=== PATIENT | female | born 1945 | race Caucasian/White ===

== ENCOUNTER 2017-08-13 04:59 | Inpatient (IN) ==
[2017-08-08 13:34] LABS: Appearance,Urine CLEAR; Bilirubin,Urine NEG (NEG); Color,Urine YELLOW; Glucose,Urine (UA) NEGATIVE (NEG); Leukocyte Esterase,Urine 75 /uL (NEG); Protein,Urine NEG (NEG); Urine Blood NEG mg/dL (<0.03); Urobilinogen,Urine NEG (NEG)
[2017-08-08 14:27] LABS: Basophils # (Auto) 0 K/mcL (0.0-0.3); Basophils % (Auto) 0.5 % (0.0-2.0); Eosinophils # (Auto) 0.1 K/mcL (0.0-0.7); Granulocytes % (Auto) 73.8 % (38.0-78.0); Lymphocytes # (Auto) 0.9 K/mcL (1.5-4.8); Lymphocytes % (Auto) 15.5 % (15.5-49.0); Mean Corpuscular HGB Conc 32.9 g/dL (31.0-36.0); Monocytes # (Auto) 0.5 K/mcL (0.1-0.9); Monocytes % (Auto) 8.2 % (1.0-12.0); Platelet Count 173 K/mcL (140-440); RBC 5.37 M/mcL (4.00-5.20); Red Cell Distribution Width 17.6 % (11.5-14.5)
[2017-08-08 14:31] LABS: Bacteria,Urine 0 /hpf (0); Mucus,Urine FEW /hpf (0); Urine RBC 1 /hpf (0-1); Urine Squamous Epithelial Cell 2 /hpf (0-4); Urine Transitional Epi Cells < 1 /hpf (0-2); Urine WBC 3 /hpf (0-4)
[2017-08-08 14:40] LABS: Blood Urea Nitrogen 20 mg/dl (8-23)
[2017-08-13] MEDS ORDERED: ACETAMINOPHEN 500 MG TABLET PO SCH (05:00)
[2017-08-13] MEDS ORDERED: CELECOXIB 200 MG CAPSULE PO SCH (05:00)
[2017-08-13] MEDS ORDERED: ceFAZolin 1 GM VIAL IV SCH (05:00)
[2017-08-13] MEDS ORDERED: oxyCODONE 10 MG TAB.ER.12H PO SCH (05:00)
[2017-08-13] MEDS ORDERED: PREGABALIN 75 MG CAPSULE PO SCH (05:00)
[2017-08-13] MEDS ORDERED: KETOROLAC 30 MG, ROPIVACAINE HCL/PF 49.5 ML, EPINEPHrine 0.5 MG, 0.9 % SODIUM CHLORIDE ... IJ SCH (06:30)
[2017-08-13] MEDS ORDERED: LIDOCAINE HCL/PF 100 MG/5 ML SYRINGE IV ONE (07:45)
[2017-08-13] MEDS ORDERED: PROPOFOL 200 MG/20 ML VIAL IV ONE (07:45)
[2017-08-13] MEDS ORDERED: ONDANSETRON 4 MG/2 ML VIAL IV ONE (07:45)
[2017-08-13] MEDS ORDERED: MIDAZOLAM 2 MG/2 ML VIAL IV ONE (07:45)
[2017-08-13] MEDS ORDERED: DEXAMETHASONE 10 MG/ML VIAL IV ONE (07:45)
[2017-08-13] MEDS ORDERED: KETAMINE 100 MG/ML ML IV ONE (07:45)
[2017-08-13] MEDS ORDERED: TRANEXAMIC ACID 1,000 MG/10 ML VIAL IV ONE (07:45)
[2017-08-13] MEDS ORDERED: PHENYLEPHRINE 10 MG/ML VIAL IV ONE (07:45)
[2017-08-13] MEDS ORDERED: ePHEDrine 50 MG/ML AMPUL IV ONE (07:45)
[2017-08-13] MEDS ORDERED: BUPIVACAINE W/EPI 0.5% 50 ML VIAL IJ ONE (07:45)
[2017-08-13] MEDS ORDERED: GLYCOPYRROLATE 0.2 MG/ML VIAL IV ONE (07:45)
[2017-08-13] MEDS ORDERED: GENTAMICIN SULFATE 800 MG/20 ML VIAL IR ONE (08:10)
[2017-08-13] MEDS ORDERED: fentaNYL 100 MCG/2 ML VIAL IV PRN (08:14)
[2017-08-13] MEDS ORDERED: PROMETHAZINE 25 MG/ML VIAL IV PRN (08:14)
[2017-08-13] MEDS ORDERED: LACTATED RINGERS 250 ML IV PRN (08:14)
[2017-08-13] MEDS ORDERED: NALOXONE HCL 0.4 MG/ML VIAL IV PRN (08:14)
[2017-08-13] MEDS ORDERED: IPRATROPIUM/ALBUTEROL 3 ML AMPUL.NEB NEB PRN (08:14)
[2017-08-13] MEDS ORDERED: ACETAMINOPHEN 1,000 MG/100 ML BOTTLE IV ONE (08:14)
[2017-08-13] MEDS ORDERED: BENZOCAINE/MENTHOL 1 LOZENGE PO PRN ×2 (08:14→09:06)
[2017-08-13] MEDS ORDERED: ONDANSETRON 4 MG/2 ML VIAL IV PRN (08:14)
[2017-08-13] MEDS ORDERED: MEPERIDINE 25 MG/ML SYRINGE IV PRN (08:14)
[2017-08-13] MEDS ORDERED: METHOCARBAMOL 1,000 MG/10 ML VIAL IV PRN (08:14)
[2017-08-13] MEDS ORDERED: FLUMAZENIL 0.1 MG/ML ML IV PRN (08:14)
[2017-08-13] MEDS ORDERED: LACTATED RINGERS 1,000 ML IV SCH (08:15)
--- NOTE | 2017-08-13 09:05 | Brief Operative Note ---
Date of procedure: 08/13/17 Pre-op diagnosis: Left knee djd Procedure: left tka with robot Grafts/Implants: Yes Anesthesia: GETA Findings: none Complications: none Complications Description: 08/13/17 09:05 none Surgeon: Feroz Rayo Trimmer Loader: Aureliano Obregon Estimated blood loss (cc): 20 Tourniquet Time (Minutes): 45 Specimens Removed/Pathology: none sent Condition: stable Disposition: PACU
[2017-08-13] MEDS ORDERED: MAGNESIUM HYDROXIDE 30 ML ORAL.SUSP PO PRN (09:06)
[2017-08-13] MEDS ORDERED: BISACODYL 10 MG SUPP.RECT PR PRN (09:06)
[2017-08-13] MEDS ORDERED: ACETAMINOPHEN 325 MG TABLET PO PRN (09:06)
[2017-08-13] MEDS ORDERED: TRANEXAMIC ACID 1,000 MG/10 ML VIAL IV SCH (09:06)
[2017-08-13] MEDS ORDERED: FLEETS ADULT ENEMA PR PRN (09:06)
[2017-08-13] MEDS ORDERED: POLYETHYLENE GLYCOL 3350 17 GM PACKET PO PRN (09:06)
--- NOTE | 2017-08-13 10:32 | XRay Report ---
CLINICAL INFORMATION: Post-Op Total Knee COMPARISON: None. FINDINGS: Total knee prostheses is anatomically aligned. No osseous abnormality. Periarticular gas and soft tissue swelling seen. IMPRESSION: Negative Interpreted and Authenticated by: Musa Ba 08/13/17
[2017-08-13] MEDS: KETOROLAC 15 MG/ML VIAL IV SCH ×3 (11:45→23:51)
[2017-08-13] MEDS: 0.45 % SODIUM CHLORIDE 1,000 ML IV SCH ×2 (11:46→20:41)
--- NOTE | 2017-08-13 12:30 | Operative Note ---
DATE OF OPERATION: 08/13/2017 PREOPERATIVE DIAGNOSIS: Significant arthritis of the left knee. POSTOPERATIVE DIAGNOSIS: Significant arthritis of the left knee. PROCEDURE: Left total knee using the ZAKIYA robot. SURGEON: Feroz Rayo M.D. SENSOR TECHNICIAN: Aureliano Obregon PA-C. ANESTHESIA: General LMA anesthesia. IMPLANTS: Flomaton implants. ESTIMATED BLOOD LOSS: 20 mL. TOURNIQUET TIME: 45 minutes. SPECIMENS: None. DESCRIPTION OF PROCEDURE: The patient was brought to the operating room and put to sleep with general LMA anesthesia. The left leg was sterilely prepped and draped in the usual sterile fashion and a timeout performed. We confirmed the operative site both by x-rays, consent form, and initials on the skin. Once done, we then made a midline incision. A mid vastus approach was performed. We inspected the knee showing severe arthritis of patellofemoral joint and a lot of arthritis in the medial and lateral compartments. We then proceeded with a total knee arthroplasty, and the ZAKIYA robot was brought in. We placed two pins above and below the knee, registered center of hip rotation. We registered medial and lateral malleolus, registered the intra-articular pins. We then registered thirty points on the femur and the tibia. We balanced the knee both at 90 degrees and in extension. Once this was perfectly positioned as far as the robot and implant positioning, we then proceeded with the case. The robot was brought in. It was registered as well as the intra-articular pin. We made our tibial cut, our anterior and posterior cuts on the femur and then our chamfer cut anteriorly, and then we changed blades into an angled blade. A distal cut was then made and a posterior chamfer cut made. We irrigated. We then removed the bony fragments, removed osteophytes posteriorly, removed the remnants of the meniscus. A tibial baseplate was then set for rotation according to the robotic placement. We then punched into place. We then trialed the femur. It fit very nicely. We irrigated thoroughly and placed an 11 mm poly which gave us 0 degrees extension. The knee was very stable throughout. We irrigated thoroughly. The knee initially had 9 degrees of hyperextension. We then prepared the patella. Its total thickness measured 19 mm. We prepared this down to 13 mm and placed a 31 mm poly which brought us back to 22 mm in total thickness. We irrigated. We then cemented into place the above-mentioned sizes, removing excess cement, and placing an 11 mm poly. We irrigated thoroughly, deflated the tourniquet at 45 minutes, and then closed the mid vastus approach with #1 Stratafix x2 stitches. We then closed the skin with 2-0 Vicryl and adhesive closure. The patient tolerated this well. Sterile bandage was applied. RBH:sunny Job ID: [id number] Doc ID: [id number] Feroz Rayo MD
[2017-08-13] MEDS: 0.9 % SODIUM CHLORIDE 10 ML SYRINGE IV SCH ×2 (12:38→20:50)
[2017-08-13] MEDS: HYDROmorphone 2 MG/ML VIAL IV PRN ×2 (13:23→17:44)
[2017-08-13] MEDS: HYDROcodone/APAP 10/325MG TABLET PO PRN (13:55)
[2017-08-13] MEDS: ceFAZolin 1 GM VIAL IV SCH ×2 (15:37→22:38)
[2017-08-13] MEDS: CARBIDOPA/LEVODOPA 25/100 TABLET PO SCH ×2 (15:37→20:43)
[2017-08-13] MEDS: ONDANSETRON 4 MG/2 ML VIAL IV PRN ×2 (17:57→21:02)
[2017-08-13] MEDS: ASPIRIN 325 MG ENTERIC COATED TABLET PO SCH (20:43)
[2017-08-13] MEDS: DOCUSATE SODIUM 100 MG CAPSULE PO SCH (20:43)
[2017-08-13] MEDS ORDERED: SERTRALINE 50 MG TABLET PO SCH (21:00)
[2017-08-13] MEDS ORDERED: LISINOPRIL 10 MG TABLET PO SCH (21:00)
[2017-08-13] MEDS ORDERED: TEMAZEPAM 15 MG CAPSULE PO PRN (21:00)
[2017-08-13] MEDS ORDERED: SENNOSIDES 1 TABLET PO SCH (21:00)
[2017-08-13] MEDS ORDERED: ACETAMINOPHEN/DIPHENHYDRAMINE 1 TABLET PO SCH (21:00)
[2017-08-14] MEDS: HYDROcodone/APAP 10/325MG TABLET PO PRN ×2 (03:42→09:38)
[2017-08-14] MEDS: KETOROLAC 15 MG/ML VIAL IV SCH ×2 (05:43→13:16)
[2017-08-14] MEDS: 0.9 % SODIUM CHLORIDE 10 ML SYRINGE IV SCH ×2 (05:44→13:16)
[2017-08-14] MEDS: 0.45 % SODIUM CHLORIDE 1,000 ML IV SCH (06:06)
--- NOTE | 2017-08-14 07:34 | Orthopedic Progress Note ---
Subjective Patient information: Note initiated : 08/14/17 at 7:33 am Service Date, if different from initiated Date: [] Patient: Mary Hogan 71 y/o F admitted on 08/13/17 for Left Robotic Total Knee Arthroplasty. Chief Complaint: [Pt is stable this morning on post operative day 1 without any significant concerns or complaints. Patients vital signs have remained stable. Patients dressing is dry and is grossly instact from a neurovascular and motor standpoint. Patients 10 point ROS is otherwise negative. ] Objective Vital signs: Vital Signs Temp Pulse Resp BP Pulse Ox 08/14/17 06:27 97.4 F 69 18 122/80 94 08/14/17 03:22 95 08/14/17 03:16 97.7 F 75 18 125/81 95 08/14/17 00:00 93 08/13/17 23:56 97.4 F 71 16 124/83 93 08/13/17 20:58 91 08/13/17 19:48 97.5 F 71 17 105/70 91 08/13/17 17:00 96 08/13/17 15:47 97.6 F 18 121/80 96 08/13/17 13:35 127/86 95 08/13/17 12:38 97 08/13/17 12:35 136/83 96 08/13/17 12:05 133/84 94 08/13/17 11:35 122/79 96 08/13/17 11:20 126/79 96 08/13/17 11:05 130/67 98 08/13/17 10:51 116/70 97 08/13/17 10:23 97.1 F 85 15 147/73 97 08/13/17 10:10 74 15 119/74 97 08/13/17 09:55 75 15 110/66 98 08/13/17 09:40 74 15 101/65 98 08/13/17 09:25 97.3 F 85 15 100/59 98 Intake and Output 08/13/17 08/14/17 08/14/17 21:59 05:59 13:59 Intake Total 230 / 230 200 / 200 Output Total 50 / 50 525 / 525 Balance 180 / 180 -325 / -325 Intake: Oral 230 / 230 200 / 200 Output: Urine Catheter Amount 500 / 500 Void Amount 50 / 50 25 / 25 Other: Meal Dinner Percent of Meal Consumed 50% Feeding Ability Assist with Tray Set Up Weight 202 lb Intake & Output: Intake & Output 08/13/17 08/14/17 08/14/17 21:59 05:59 13:59 Intake Total 230 / 230 200 / 200 Output Total 50 / 50 525 / 525 Balance 180 / 180 -325 / -325 Weight 202 lb Intake: Oral 230 / 230 200 / 200 Output: Urine Catheter Amount 500 / 500 Void Amount 50 / 50 25 / 25 Other: Meal Dinner Percent of Meal Consumed 50% Feeding Ability Assist with Tray Set Up Incision: Yes healing Incision clean and dry: Yes Dressing: Yes clean, Yes dry Weight bearing status: full Neurological exam IM: Yes oriented X3, Yes reflexes normal, Yes motor sensory intact, Yes neurovascular intact Extremities exam IM: Yes Foot pink and warm, Yes neurovascular intact - Labs CBC & BMP: 08/14/17 04:25 08/08/17 11:28 Labs: Orthopedic Labs 08/08/17 11:28 PT 13.2 INR 1.0 APTT 33 08/14/17 08/08/17 04:25 11:28 Hgb 14.0 Hct 33.6 L 42.4 Assessment and Plan (1) Hx of total knee arthroplasty The patient has been educated regarding dressing care, Physical Therapy recommendations, home exercises, restrictions, and follow up appointments. The patient has had all necessary DME prescribed. The patient has remained stable during their hospital course. The patient was discharge with a stable exam. Leave Dermabond patch intact until followup Status: Acute
--- NOTE | 2017-08-14 07:37 | Discharge Summary ---
Ortho Discharge - TKA - Patient Instructions Diet: Regular Diet Activity: activity as tolerated, weight bearing as tolerated Total Knee Protocol: For Total Knee: Start ROM SHANELLE with stationary bike or rocking chair. Work on gaining full extension of knee. Posterior dislocation precautions provided. Hip abductor strengthening and gait training instructions provided. Apply Cryocuff as instructed. Dressing Care: May shower in 2 days, Aquacel Ag - leave on for 5 days Patient Education: Total Knee Replacement (DC) - Problem Maintenance (1) Hx of total knee arthroplasty Status: Acute - Follow Up Plan Follow Up Appointments: Aureliano Obregon PA-C [Physician [employer]] - 08/24/17 10:00 am Disposition: Home, Self-Care Prognosis: Good Rehab Potential: Good I certify that the patient requires SNF services: No Overall status at discharge: patient is progressing back to baseline - Orders For Discharge Prescriptions: Aspirin [Ecotrin] 325 mg PO BID #60 tab.ec Docusate Sodium [Colace] 100 mg PO BID #60 cap HYDROcodone/APAP 10/325MG [[place] 10/325Mg] 1 - 2 tab PO Q4HP PRN #75 tab PRN Reason: Pain Level 3-6
[2017-08-14] MEDS: ASPIRIN 325 MG ENTERIC COATED TABLET PO SCH (08:00)
[2017-08-14] MEDS: CARBIDOPA/LEVODOPA 25/100 TABLET PO SCH (08:00)
[2017-08-14] MEDS: DOCUSATE SODIUM 100 MG CAPSULE PO SCH (08:00)
[2017-08-14] MEDS ORDERED: PNEUMOCOCCAL 23-VAL P-SAC VAC 0.5 ML VIAL IM ONE (10:00)
[2017-08-14] MEDS ORDERED: FLU VACC QS2017-18 36MOS UP/PF 60 MCG/0.5 ML SYRINGE IM ONE (10:15)
== END 2017-08-14 13:00 | disposition home or self-care (01) | DRG 470 ==
LOC: MEDSUR 04:59
PROVIDERS: ADMIT Orthopaedic Surgery; ATTEND Orthopaedic Surgery